=== PATIENT | male | born 1960 | race Caucasian/White ===

== ENCOUNTER 2017-03-31 13:28 | Emergency (ER) | payer BC ==
[~2017-03-31] VITALS: Ht 175.3 cm; Wt 84.1 kg
[2017-03-31] MEDS ORDERED: HYDROCHLOROTHIA1 T15 PO (13:49)
[2017-03-31] MEDS ORDERED: INDOCIN SR 75MG75 MG PO (13:49)
[2017-03-31] MEDS ORDERED: LEFLUNOMIDE20 MG PO (13:50)
[2017-03-31] MEDS ORDERED: HUMIRA40 MG/0.4 SQ (13:50)
[2017-03-31 18:22] VITALS: BP 129/96
== END 2017-03-31 18:19 | disposition home or self-care (01) ==
LOC: ED 13:28
DX: K21.9 Gastro-esophageal reflux disease without esophagitis (principal); R07.89 Other chest pain; I10 Essential (primary) hypertension; M06.9 Rheumatoid arthritis, unspecified; R61 Generalized hyperhidrosis; R06.02 Shortness of breath

== ENCOUNTER → 2017-07-03 | Outpatient (CLI) | payer BC ==
[~2017-07-03] MED LIST: HUMIRA40 MG/0.4 SQ; HYDROCHLOROTHIA1 T15 PO; INDOCIN SR 75MG75 MG PO; LEFLUNOMIDE20 MG PO
== END ==
LOC: RAD 08:29
DX: M25.551 Pain in right hip (principal); Z96.642 Presence of left artificial hip joint